=== PATIENT | male | born 1940 | race Caucasian/White ===

== ENCOUNTER 2024-06-14 19:31 | Inpatient (IN) | payer OTHER, SELFPAY ==
[2024-06-14 20:00] VITALS: BP 163/71; PULSE 65; RESP 18; TEMP 37.1; BMI 22.0
[2024-06-14 20:48] VITALS: BMI 23.3
[2024-06-14] MEDS: Acetaminophen 325 MG TABLET 650 MG PO (21:12)
[2024-06-14] MEDS: traZODone HCL 50 MG TABLET PO (21:12)
[2024-06-14] MEDS: Donepezil HCl 5 MG TABLET PO (21:12)
[2024-06-14] MEDS: Melatonin 3 MG TABLET PO (21:12)
[2024-06-14] MEDS: bisacodyL 5 MG TABLET.DR PO (21:12)
[2024-06-14] MEDS: Memantine HCl 10 MG TABLET PO (21:12)
[2024-06-14] MEDS: Carbidopa/Levodopa 25/100 TABLET 1 TAB PO (21:45)
[2024-06-14] MEDS: Azelastine HCl Nasal 137 MCG/Spray 30 ML 2 SPRAY NOSTRIL-B (21:45)
--- NOTE | 2024-06-14 23:45 | PC.NURSE ---
Admission Note Abel Shaffer, a 84-year-old man, was presented to [facility] ED from SNF for increased agitation with homicidal ideation. The patient has a medical and psychiatric history of major neuro cognitive disorder with behavior, hypertension, and NIDDM.? Abel arrived at our unit in a stretcher at 1950 on 06/14/24, on CV, with an admitting diagnosis of major neuro cognitive disorder with behavior. The patient is alert and oriented to self only. Abel is grossly confused, anxious, and at times restless needs constant redirection. Alert and oriented to self only, but he follows directions well. The skin check revealed no major skin issues except scab on right foot. He has an inverted penis with enlarged pubic region. No tenderness on palpation. Meds rec completed/approved/MAR active. Abel is med-compliant, and takes his meds whole. He ambulates independently with mild unsteadiness. Abel wears pull ups but he is incontinent of bowel and bladder. He is fully dependent on ADL care. He is high fall risk and his last fall was on 05/31/[address] [facility]. Labs are unremarkable. UA negative. Utox negative. Abel was unable to sign the treatment plan, safety tool, belonging sheet, and release paper. Prashanthabanraj searched and placed Abel in a 5 minutes safety check.
[2024-06-15] MEDS: traZODone HCL 50 MG TABLET PO ×2 (01:49→22:36)
[2024-06-15] MEDS: OLANZapine ODT 10 MG TAB.RAPDIS TRANSLINGU (05:21)
[2024-06-15 05:52] LABS: Glucose, Whole Blood 69 mg/dL (60-115)
[2024-06-15 06:00] VITALS: O2SAT 91
[2024-06-15 06:34] LABS: Glucose, Whole Blood 123 mg/dL (60-115)
[2024-06-15 08:00] VITALS: BP 126/60; PULSE 75; RESP 18; TEMP 36.5; O2SAT 95
[2024-06-15] MEDS: metFORMIN HCl 1,000 MG TABLET 1000 MG PO ×2 (09:01→16:55)
[2024-06-15] MEDS: Losartan Potassium 50 MG TABLET 100 MG PO (09:01)
[2024-06-15] MEDS: Aspirin 81 MG TAB.CHEW PO (09:01)
[2024-06-15] MEDS: amLODIPine Besylate 5 MG TABLET PO (09:01)
[2024-06-15] MEDS: Pravastatin Sodium 80 MG TABLET PO (09:01)
[2024-06-15] MEDS: Memantine HCl 10 MG TABLET PO ×2 (09:01→20:20)
[2024-06-15] MEDS: polyethylene glycoL 3350 17 GM POWD.PACK PO (09:02)
[2024-06-15] MEDS: Azelastine HCl Nasal 137 MCG/Spray 30 ML 2 SPRAY NOSTRIL-B ×2 (09:02→20:20)
[2024-06-15 09:31] LABS: Estimated Average Glucose 97 mg/dL
[2024-06-15 10:06] LABS: Folate 14.6 ng/mL (> or = 4.0); Vitamin B12 976 pg/mL (200-900)
--- NOTE | 2024-06-15 10:27 | HO.PSYADMNOT ---
HPI Date of Service: 06/15/24 Chief Complaint: Unspec Dementia Severity w/Behavioral Dist Etc Sources of Information: patient interviewed, chart reviewed and crisis/core team assessment reviewed Additional Sources of Information: Son, Abel, also HCP [phone] HPI Subjective Notes: Conditional Voluntary (signed by HCP) Narrative: Mr. Shaffer is an 84 year-old male with hx of AD who was brought via EMS from [facility] to [facility] due to increase agitation, attempting to hit staff and other residents and stating I'm going to kill you. In the ED, pt found to be oriented only to self. He was not able to tell why he was in the hospital and did not remember threatening someone. Pertinent labs completed in the ED included cbc with normocytic anemia, Hgb 10.2, Hct 30.5; CMP without electrolyte abnormalities, BUN 25, Cr 1.5, creatinine clearance 46. LFTs wnl. UA with trace of ketones, no glucose, trace of leukocytes but no bacteria. Utox was negative. On the unit, pt had difficulties sleeping through the night and presented with intermittent agitation due to confusion. He presented with somewhat of an irritable edge, not oriented to place, month, year nor situation. Noted expressive aphasia. He attempts to impulsively get up and walk out of his room without awareness of unsteady gait and risk for fall. Collateral information was gathered from his son, also named Abel, who reports pt lives with him but after he had a UTI and went to [facility] he was sent to STR at [facility] where he had difficulty adjusting as his dementia is very advanced and finally he was transferred to memory unit with plan to continue STR. Mr. Shaffer sees a neurologist, Dr. Ruddy Hammond who prescribes, aricept, namenda and sinemet (only bedtime dose). Pt's son reports that plan is for patient to return home as son is 19/10 caring for him. Past Psychiatric History: Inpt: none OP: none Neurologist: Ruddy Hammond Past medication trials: namenda, aricept, trazodone Medical Evaluation Reviewed: Yes [facility] Medical History (Updated 06/17/24 @ 08:28 by Kaylin Chandler NP) Unspecified dementia, moderate, with other behavioral disturbance HLD (hyperlipidemia) Non-insulin dependent type 2 diabetes mellitus HTN (hypertension) Family History: none Social History: Pt is . back in 2018. He completed [employer]. 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 He has two adult children, son Abel and daughter, Francia who lives in [place]. Son bAel is retired from the [employer] and lives with patient. Substance History: None Trauma History: None reported Diagnostics Vital Signs (24Hr): Vital Signs - 24 hr 06/14/24 20:00 06/15/24 06:00 06/15/24 08:00 Temperature 98.7 F 97.7 F Pulse Rate 65 75 Respiratory Rate 18 18 Blood Pressure 163/71 H 126/60 Pulse Oximetry 91 L 95 Oxygen Delivery Method Room Air Room Air BMI result Body Mass Index 23.3 Labs 06/16/24 10:53 06/16/24 09:07 Labs: Laboratory Results - last 48 hr 06/15/24 06/15/24 06/15/24 05:34 06:21 08:58 POC Glucose 69 123 H Estimat Average Glucose 97 Hemoglobin A1c % 5.0 Vitamin B12 976 H Folate 14.6 Meds/Allergies Meds Home Medications ?Medication ?Instructions ?Recorded ?Confirmed ?Type amlodipine 5 mg tablet 5 mg PO DAILY 06/14/24 06/14/24 History aspirin 81 mg tablet 81 mg PO DAILY 06/14/24 06/14/24 History azelastine 205.5 mcg (0.15 %) 2 spray intranasal BID 06/14/24 06/14/24 History nasal spray bisacodyl 5 mg tablet,delayed 5 mg PO BEDTIME 06/14/24 06/14/24 History release carbidopa ER 25 mg-levodopa 100 mg 1 tab PO BEDTIME 06/14/24 06/14/24 History tablet,extended release donepezil 5 mg tablet 5 mg PO BEDTIME 06/14/24 06/14/24 History losartan 100 mg tablet 100 mg PO DAILY 06/14/24 06/14/24 History magnesium hydroxide 400 mg/5 mL 2,400 mg PO DAILY PRN Constipation 06/14/24 06/14/24 History oral suspension melatonin 3 mg tablet 3 mg PO BEDTIME PRN Insomnia 06/14/24 06/14/24 History memantine 10 mg tablet 10 mg PO BID 06/14/24 06/14/24 History metformin 1,000 mg tablet 1,000 mg PO BID 06/14/24 06/14/24 History polyethylene glycol 3350 17 gram 17 g PO DAILY 06/14/24 06/14/24 History oral powder packet pravastatin 80 mg tablet 80 mg PO DAILY 06/14/24 06/14/24 History trazodone 50 mg tablet 50 mg PO BEDTIME 06/14/24 06/14/24 History Allergies Allergies Allergy/AdvReac Type Severity Reaction Status Date / Time No Known Allergies Allergy Verified 06/14/24 19:44 Mental Status Exam Mental Status Exam Narrative: Appearance: wearing casual clothing, fair hygiene, somewhat irritable Behavior: somewhat irritable Psychomotor: no agitation or retardation noted Speech: mumbles at times, regular rate/rhythm, spontaneous TP:mild expressive aphasia TC: wanting to get up and go Mood: good Affect: congruent, slightly irritable SI: none HI: none VH/AH: no overt signs Delusions: confabulation Insight/judgment: impaired x 2. Memory/cog: alert, not oriented to place, month year or situation. severe impairments in memory/cognition. 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 He is currently on metformin 1000mg BID. According to his creatinine clearance, dose shouldn't exceed 1000mg/day. Given A1c, and creatinine clearance will decrease dose to 500mg po BID. (4) HTN (hypertension): Status: Acute Code(s): I10 - Essential (primary) hypertension Assessment and Plan: Amlodipine 10mg po daily Losartan 100mg po daily (5) Extrapyramidal movement disorder: Status: Acute Code(s): G25.9 - Extrapyramidal and movement disorder, unspecified Assessment and Plan: Pt on levodopa/carbidopa at night but NOT for parkison's disease. will clarify with his neurologist, Dr. Ruddy Hammond. Plan Mr. Shaffer is an 84 year-old male with hx of AD who was brought via EMS from [facility] where he was receiving STR to [facility] ED due to combative behaviors. Medical work up grossly unremarkable and not contributory. Pt does NOT present with s/s of delirium. His presentation with impairments in orientation, memory, language deficits are reflection of his underlying dementia, AD type. His condition at this point is in advanced stages. Discussed with his son who is HCP risks, benefits and alternative treatment options. Pt does seem to be sensitive to sedative effects of some psychotropic medications. He slept several hours after dose of olanzapine 10mg. He received lowered dose of seroquel of 25mg which also seem to be sedating. We could try 2.5mg of olanzapine to target more impulsive, irritable mood. PLAN 1. Admit to S1, CV by HCP. HCP is invoked. 1 to 1 due to risk for fall. 2. try low dose olanzapine 2.5mg po BID- monitor over sedation. 3. aftercare planning. Patient educated on: diagnosis (son who is HCP) and medication risk/benefits Reason for continued inpatient stay Substantial Risk for: inability to function Statement Statement: I have reviewed the history and physical and performed a pertinent examination on my patient. No changes have occurred unless specified. If the History and Physical was not performed prior to admission, the Hospitalist's service will be consulted for completing the admission physical. Time Spent With Patient Time: Total time managing care of this patient today ____ minutes.
--- NOTE | 2024-06-15 18:23 | HO.PM.IMCN ---
History of Present Illness Data of Consult Service Date: 06/15/24 Primary Care Provider: Unknown Physician HPI Reason for consult: Admission H&P Pt is an 84-year-old male with a PMH significant for?HTN, HLD, parkinsonism, [id number]-[id number] type 2 diabetes, and unspecified dementia who is admitted to [facility] for increasing agitation and homicidal ideation. Pt apparently repeatedly stated ?I am going to kill you? when presenting to [facility] in [facility]. Medical consult for admission H&P. Pt has alert and oriented to self only. Unable to provide much in the way of PMH. Pt however states that he is feeling well and has no acute medical complaints. Denies fever, chills, nausea, vomiting, or abdominal pain. No SOB or difficulty breathing. Denies chest pain/pressure, palpitations. Pt seen ambulating on the unit, where he is walking slowly with a walker. Pt appears tremulous at least. Review of Systems Review of Systems: Pt has no acute medical complaints at this time. [facility] Medical History (Updated 06/15/24 @ 19:25 by FAUSTO Torre) Unspecified dementia, moderate, with other behavioral disturbance Parkinson's disease HLD (hyperlipidemia) Non-insulin dependent type 2 diabetes mellitus HTN (hypertension) Social History Household Members: Unknown / Unable to assess Housing: [facility] Do you presently have visiting nurse or other home services: No Patient Tobacco Use Status: Never used Tobacco e-Cigarette/Vaping Use: Never Used Use of substances other than those prescribed or required for medical reasons: Unable to respond Currently Displaying Signs/Symptoms of Drug Intoxication Withdrawal: No Advance Directives: No Advance Directives Information Provided: No Do you have thoughts of harming others: None Do you have a plan to hurt others: No Plan Recently lost weight without trying: No Nutrition Risks: No Nutritional Risk Meds Allergies Allergy/AdvReac Type Severity Reaction Status Date / Time No Known Allergies Allergy Verified 06/14/24 19:44 Active Medications: Current Medications Acetaminophen (Acetaminophen 325 Mg Tablet) 650 mg PO Q6H PRN PRN Reason: Headache/Pain, Scale 1-10 Last Admin: 06/14/24 21:12 Dose: 650 mg Al Hydroxide/Mg Hydroxide (Magnesium Hydrox/Alum Hydrox 30 Ml Oral.Susp) 30 ml PO Q6H PRN PRN Reason: Heartburn/Nausea Amlodipine Besylate (Amlodipine Besylate 5 Mg Tablet) 5 mg PO DAILY [facility]; Protocol Last Admin: 06/15/24 09:01 Dose: 5 mg Aspirin (Aspirin 81 Mg Tab.Chew) 81 mg PO DAILY [facility] Last Admin: 06/15/24 09:01 Dose: 81 mg Azelastine HCl (Azelastine Hcl Nasal 137 Mcg/[place] 30 Ml) 2 spray NOSTRIL-B BID [facility] Last Admin: 06/15/24 09:02 Dose: 2 spray Bisacodyl (Bisacodyl 5 Mg Tablet.Dr) 5 mg PO BEDTIME [facility] Last Admin: 06/14/24 21:12 Dose: 5 mg Carbidopa/Levodopa (Carbidopa/Levodopa 25/100 Tablet) 1 tab PO BEDTIME [facility] Last Admin: 06/14/24 21:45 Dose: 1 tab Donepezil HCl (Donepezil Hcl 5 Mg Tablet) 5 mg PO BEDTIME [facility] Last Admin: 06/14/24 21:12 Dose: 5 mg Losartan Potassium (Losartan Potassium 50 Mg Tablet) 100 mg PO DAILY [facility]; Protocol Last Admin: 06/15/24 09:01 Dose: 100 mg Magnesium Hydroxide (Milk Of Magnesia 30 Ml Oral.Susp) 30 ml PO DAILY PRN PRN Reason: Constipation Magnesium Hydroxide (Milk Of Magnesia 30 Ml Oral.Susp) 30 ml PO DAILY PRN PRN Reason: Constipation Melatonin (Melatonin 3 Mg Tablet) 3 mg PO BEDTIME PRN PRN Reason: Insomnia Last Admin: 06/14/24 21:12 Dose: 3 mg Memantine (Memantine Hcl 10 Mg Tablet) 10 mg PO BID [facility] Last Admin: 06/15/24 09:01 Dose: 10 mg Metformin HCl (Metformin Hcl 1,000 Mg Tablet) 1,000 mg PO BIDWM [facility] Last Admin: 06/15/24 16:55 Dose: 1,000 mg Nicotine Polacrilex (Nicotine Polacrilex 2 Mg Gum) 4 mg BUCCAL Q2H PRN PRN Reason: Nicotine Cravings Polyethylene Glycol (Polyethylene Glycol 3350 17 Gm Powd.Pack) 17 gm PO DAILY [facility] Last Admin: 06/15/24 09:02 Dose: 17 gm Pravastatin Sodium (Pravastatin Sodium 80 Mg Tablet) 80 mg PO DAILY [facility] Last Admin: 06/15/24 09:01 Dose: 80 mg Trazodone HCl (Trazodone Hcl 50 Mg Tablet) 50 mg PO BEDTIME PRN PRN Reason: Insomnia Home Medications ?Medication ?Instructions ?Recorded ?Confirmed ?Last Taken ?Type amlodipine 5 mg tablet 5 mg PO DAILY 06/14/24 06/14/24 Unknown History aspirin 81 mg tablet 81 mg PO DAILY 06/14/24 06/14/24 Unknown History azelastine 205.5 mcg (0.15 %) 2 spray intranasal BID 06/14/24 06/14/24 Unknown History nasal spray bisacodyl 5 mg tablet,delayed 5 mg PO BEDTIME 06/14/24 06/14/24 Unknown History release carbidopa ER 25 mg-levodopa 100 mg 1 tab PO BEDTIME 06/14/24 06/14/24 Unknown History tablet,extended release donepezil 5 mg tablet 5 mg PO BEDTIME 06/14/24 06/14/24 Unknown History losartan 100 mg tablet 100 mg PO DAILY 06/14/24 06/14/24 Unknown History magnesium hydroxide 400 mg/5 mL 2,400 mg PO DAILY PRN Constipation 06/14/24 06/14/24 Unknown History oral suspension melatonin 3 mg tablet 3 mg PO BEDTIME PRN Insomnia 06/14/24 06/14/24 Unknown History memantine 10 mg tablet 10 mg PO BID 06/14/24 06/14/24 Unknown History metformin 1,000 mg tablet 1,000 mg PO BID 06/14/24 06/14/24 Unknown History polyethylene glycol 3350 17 gram 17 g PO DAILY 06/14/24 06/14/24 Unknown History oral powder packet pravastatin 80 mg tablet 80 mg PO DAILY 06/14/24 06/14/24 Unknown History trazodone 50 mg tablet 50 mg PO BEDTIME 06/14/24 06/14/24 Unknown History Physical Exam Vital Signs and Narrative: Vital Signs: Last Vital Signs Temp 97.7 F 06/15/24 08:00 Pulse 75 06/15/24 08:00 Resp 18 06/15/24 08:00 BP 126/60 06/15/24 08:00 Pulse Ox 95 06/15/24 08:00 O2 Del Method Room Air 06/15/24 08:00 BMI result Body Mass Index 23.3 General: Alert and oriented to self only. In no acute distress Resp: CTA bilaterally CVS: S1, S2, RRR GI: +BS, NT, no distention Skin: Warm, dry Neuro: Cranial nerves II-XII grossly intact bilaterally. Motor grossly intact bilaterally. Global weakness. Resting tremors of upper extremities. Extremities: No edema Psych: Pleasantly confused Results Labs Labs: Laboratory Results - last 24 hr 06/15/24 06/15/24 06/15/24 05:34 06:21 08:58 POC Glucose 69 123 H Estimat Average Glucose 97 Hemoglobin A1c % 5.0 Vitamin B12 976 H Folate 14.6 Assessment and Plan (1) Medical clearance for psychiatric admission: Status: Acute Plan Pt is an 84-year-old male with a PMH significant for?HTN, HLD, parkinsonism, hsp-tpbgdld-[id number] type 2 diabetes, and unspecified dementia who is admitted to [facility] for increasing agitation and homicidal ideation. Pt apparently repeatedly stated ?I am going to kill you? when presenting to [facility] in [facility]. Medical consult for admission H&P. Mood disorder Plan as per psychiatry HTN Continue amlodipine, losartan Parkinsonism Continue carbidopa levodopa HLD Continue statin Mpz-xqggupl-xggunenns type 2 diabetes Continue metformin Encourage diabetic diet and diabetic snacking Unspecified dementia Continue donepezil and memantine Thank you for allowing us to participate in the care of this patient. Signing off at this time. Please re-consult if any acute complaints or issues arise.
[2024-06-15 20:00] VITALS: BP 150/70; PULSE 96; RESP 16; TEMP 36.2; O2SAT 92
[2024-06-15] MEDS: Carbidopa/Levodopa 25/100 TABLET 1 TAB PO (20:20)
[2024-06-15] MEDS: Donepezil HCl 5 MG TABLET PO (20:20)
[2024-06-15] MEDS: bisacodyL 5 MG TABLET.DR PO (20:20)
[2024-06-15] MEDS: Melatonin 3 MG TABLET PO (22:36)
[2024-06-16 08:00] VITALS: BP 99/57; PULSE 64; RESP 16; TEMP 36.6; O2SAT 92
[2024-06-16 09:15] LABS: Cholesterol 128 mg/dL (<200); HDL Cholesterol 47 mg/dL (>40); LDL Cholesterol Calculated 69 mg/dL (<100); Magnesium 1.7 mg/dL (1.6-2.6); Triglycerides 64 mg/dL (<150)
[2024-06-16 09:33] LABS: Free T4 (Free Thyroxine) 1.09 ng/dL (0.71-1.85); Thyroid Stimulating Hormone 1.53 uIU/mL (0.32-4.0)
[2024-06-16 09:36] LABS: Alanine Aminotransferase 9 U/L (0-40); Albumin Level 3.1 g/dL (3.5-5.0); Alkaline Phosphatase 81 U/L (39-117); Anion Gap 11 (12-20); Aspartate Amino Transferase 17 U/L (5-37); Bilirubin Total 0.4 mg/dL (0.0-1.0); Blood Urea Nitrogen 16 mg/dL (9-16); Calcium 9.1 mg/dL (8.4-10.2); Carbon Dioxide 26 mmol/L (22-29); Chloride 110 mmol/L (96-108); Creatinine Clr Calc Pharmacy 40.9; Estimated Glomerular Filt Rate 58; Glucose Random 75 mg/dL (60-115); Potassium 4.1 mmol/L (3.3-5.1); Sodium 143 mmol/L (135-145); Total Protein 6.3 g/dL (6.5-8.0)
[2024-06-16 09:53] LABS: TSH reflex Free T4 1.42 uIU/mL (0.32-4.0)
[2024-06-16] MEDS: Azelastine HCl Nasal 137 MCG/Spray 30 ML 2 SPRAY NOSTRIL-B ×2 (10:26→19:54)
[2024-06-16] MEDS: Aspirin 81 MG TAB.CHEW PO (10:27)
[2024-06-16] MEDS: metFORMIN HCl 1,000 MG TABLET 1000 MG PO ×2 (10:27→17:16)
[2024-06-16] MEDS: Pravastatin Sodium 80 MG TABLET PO (10:27)
[2024-06-16] MEDS: Memantine HCl 10 MG TABLET PO ×2 (10:27→19:55)
[2024-06-16] MEDS: polyethylene glycoL 3350 17 GM POWD.PACK PO (10:47)
[2024-06-16] MEDS: QUEtiapine Fumarate 25 MG TABLET PO (10:52)
[2024-06-16 10:57] LABS: MANUAL DIFF FLAG NO
[2024-06-16 11:03] LABS: Basophils Percent Auto 0.3 % (0-2); Eosinophils Absolute Auto 0.2 X10*3/uL (0.0-0.4); Eosinophils Percent Auto 3.1 % (0-4); Hematocrit 33.4 % (42.0-52.0); Hemoglobin 10.6 g/dl (14.0-18.0); Imm Gran Abs Auto 0.01 X10*3/uL (0.00-0.03); Imm Gran Pct Auto 0.2 % (0.0-0.4); Lymphocytes Absolute Auto 1.4 X10*3/uL (1.2-4.9); Lymphocytes Percent Auto 24.1 % (20-40); Mean Corpuscular HGB Conc 31.7 g/dl (31.0-36.0); Mean Corpuscular Hemoglobin 29.8 pg (27.0-33.0); Mean Corpuscular Volume 93.8 fL (80.0-98.0); Mean Platelet Volume 9.8 fL (9.4-12.4); Monocytes Absolute Auto 0.9 X10*3/uL (0.1-1.2); Monocytes Percent Auto 15.1 % (2-11); Neutrophils Absolute Auto 3.4 x10*3/uL (2.0-8.3); Neutrophils Percent Auto 57.2 % (45-73); Platelet Count 255 X10*3/uL (160-400); Red Blood Count 3.56 X10*6/uL (4.60-5.80); Red Cell Distribution Width 14.6 % (11.0-16.0); White Blood Count 5.9 X10*3/uL (4.8-10.8)
--- NOTE | 2024-06-16 16:29 | P.PNPSI_ITS ---
Subjective Subjective Date of Service: 06/16/24 Reason For Visit: Unspec Dementia Severity w/Behavioral Dist Etc Subjective Notes: Conditional Voluntary Interim History: Pt slept most of the night. He is not oriented to place, situation or month. He uses profanities, due to aphasia, easier to retrieve. slightly irritable, attempting to walk fast without awareness of risk of fall. continue on one to one for this reason. He was given seroquel 25mg po in the AM but later slept for 3 hrs. may try olanzapine 2.5mg po BID. Review of Systems Review of Systems Pt has no acute medical complaints at this time. Yes Unobtainable due to mental condition Mental Status Exam Mental Status Exam Narrative: Appearance: wearing casual clothing, fair hygiene, somewhat irritable Behavior: somewhat irritable Psychomotor: no agitation or retardation noted Speech: mumbles at times, regular rate/rhythm, spontaneous TP:mild expressive aphasia TC: wanting to get up and go Mood: good Affect: congruent, slightly irritable SI: none HI: none VH/AH: no overt signs Delusions: confabulation Insight/judgment: impaired x 2. Memory/cog: alert, not oriented to place, month year or situation. severe impairments in memory/cognition. Diagnostics Vital Signs (24Hr): Vital Signs - 24 hr 06/15/24 20:00 06/16/24 08:00 Temperature 97.2 F 97.8 F Pulse Rate 96 64 Respiratory Rate 16 16 Blood Pressure 150/70 H 99/57 L Pulse Oximetry 92 92 Oxygen Delivery Method Room Air Room Air BMI result Body Mass Index 23.3 Labs 06/16/24 10:53 06/16/24 09:07 Labs: Laboratory Results - last 48 hr 06/15/24 06/15/24 06/15/24 05:34 06:21 08:58 WBC RBC Hgb Hct MCV MCH MCHC RDW Plt Count MPV Immature Gran % (Auto) Neut % (Auto) Lymph % (Auto) [place] % (Auto) Eos % (Auto) Baso % (Auto) Lymph # (Auto) [place] # (Auto) Eos # (Auto) Baso # (Auto) Abs Immat Gran (auto) Absolute Neuts (auto) Absolute Nucleated RBC Nucleated RBC % (auto) Sodium Potassium Chloride Carbon Dioxide Anion Gap BUN Creatinine Estim Creat Clear Calc Estimated GFR POC Glucose 69 123 H Random Glucose Estimat Average Glucose 97 Hemoglobin A1c % 5.0 Lactic Acid Calcium Magnesium Total Bilirubin AST ALT Alkaline Phosphatase Total Protein Albumin Triglycerides Cholesterol LDL Cholesterol, Calc HDL Cholesterol Vitamin B12 976 H Folate 14.6 TSH Free T4 06/16/24 06/16/24 06/16/24 08:07 09:07 10:53 WBC 5.9 RBC 3.56 L Hgb 10.6 L Hct 33.4 L MCV 93.8 MCH 29.8 MCHC 31.7 RDW 14.6 Plt Count 255 MPV 9.8 Immature Gran % (Auto) 0.2 Neut % (Auto) 57.2 Lymph % (Auto) 24.1 [place] % (Auto) 15.1 H Eos % (Auto) 3.1 Baso % (Auto) 0.3 Lymph # (Auto) 1.4 [place] # (Auto) 0.9 Eos # (Auto) 0.2 Baso # (Auto) 0.0 Abs Immat Gran (auto) 0.01 Absolute Neuts (auto) 3.4 Absolute Nucleated RBC 0.000 Nucleated RBC % (auto) 0.0 Sodium 143 Potassium 4.1 Chloride 110 H Carbon Dioxide 26 Anion Gap 11 L BUN 16 Creatinine 1.19 Estim Creat Clear Calc 40.9 Estimated GFR 58 POC Glucose Random Glucose 75 Estimat Average Glucose Hemoglobin A1c % Lactic Acid 1.0 Calcium 9.1 Magnesium 1.7 Total Bilirubin 0.4 AST 17 ALT 9 Alkaline Phosphatase 81 Total Protein 6.3 L Albumin 3.1 L Triglycerides 64 Cholesterol 128 LDL Cholesterol, Calc 69 HDL Cholesterol 47 Vitamin B12 Folate TSH 1.53 1.42 Free T4 1.09 Medications Medications Current Medications Acetaminophen (Acetaminophen 325 Mg Tablet) 650 mg PO Q6H PRN PRN Reason: Headache/Pain, Scale 1-10 Last Admin: 06/14/24 21:12 Dose: 650 mg Al Hydroxide/Mg Hydroxide (Magnesium Hydrox/Alum Hydrox 30 Ml Oral.Susp) 30 ml PO Q6H PRN PRN Reason: Heartburn/Nausea Amlodipine Besylate (Amlodipine Besylate 5 Mg Tablet) 5 mg PO DAILY [facility]; Protocol Last Admin: 06/16/24 10:46 Dose: Not Given Aspirin (Aspirin 81 Mg Tab.Chew) 81 mg PO DAILY [facility] Last Admin: 06/16/24 10:27 Dose: 81 mg Azelastine HCl (Azelastine Hcl Nasal 137 Mcg/[place] 30 Ml) 2 spray NOSTRIL-B BID [facility] Last Admin: 06/16/24 10:26 Dose: 2 spray Bisacodyl (Bisacodyl 5 Mg Tablet.Dr) 5 mg PO BEDTIME [facility] Last Admin: 06/15/24 20:20 Dose: 5 mg Carbidopa/Levodopa (Carbidopa/Levodopa 25/100 Tablet) 1 tab PO BEDTIME [facility] Last Admin: 06/15/24 20:20 Dose: 1 tab Donepezil HCl (Donepezil Hcl 5 Mg Tablet) 5 mg PO BEDTIME [facility] Last Admin: 06/15/24 20:20 Dose: 5 mg Losartan Potassium (Losartan Potassium 50 Mg Tablet) 100 mg PO DAILY [facility]; Protocol Last Admin: 06/16/24 10:47 Dose: Not Given Magnesium Hydroxide (Milk Of Magnesia 30 Ml Oral.Susp) 30 ml PO DAILY PRN PRN Reason: Constipation Magnesium Hydroxide (Milk Of Magnesia 30 Ml Oral.Susp) 30 ml PO DAILY PRN PRN Reason: Constipation Melatonin (Melatonin 3 Mg Tablet) 3 mg PO BEDTIME PRN PRN Reason: Insomnia Last Admin: 06/15/24 22:36 Dose: 3 mg Memantine (Memantine Hcl 10 Mg Tablet) 10 mg PO BID [facility] Last Admin: 06/16/24 10:27 Dose: 10 mg Metformin HCl (Metformin Hcl 1,000 Mg Tablet) 1,000 mg PO BIDWM [facility] Last Admin: 06/16/24 10:27 Dose: 1,000 mg Nicotine Polacrilex (Nicotine Polacrilex 2 Mg Gum) 4 mg BUCCAL Q2H PRN PRN Reason: Nicotine Cravings Polyethylene Glycol (Polyethylene Glycol 3350 17 Gm Powd.Pack) 17 gm PO DAILY [facility] Last Admin: 06/16/24 10:47 Dose: 17 gm Pravastatin Sodium (Pravastatin Sodium 80 Mg Tablet) 80 mg PO DAILY [facility] Last Admin: 06/16/24 10:27 Dose: 80 mg Trazodone HCl (Trazodone Hcl 50 Mg Tablet) 50 mg PO BEDTIME PRN PRN Reason: Insomnia Last Admin: 06/15/24 22:36 Dose: 50 mg Allergies Allergies Allergy/AdvReac Type Severity Reaction Status Date / Time No Known Allergies Allergy Verified 06/14/24 19:44 Assessment & Plan Assessment & Plan (1) 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 He is currently on metformin 1000mg BID. According to his creatinine clearance, dose shouldn't exceed 1000mg/day. Given A1c, and creatinine clearance will decrease dose to 500mg po BID. (4) HTN (hypertension): Status: Acute Code(s): I10 - Essential (primary) hypertension Assessment and Plan: Amlodipine 10mg po daily Losartan 100mg po daily (5) Extrapyramidal movement disorder: Status: Acute Code(s): G25.9 - Extrapyramidal and movement disorder, unspecified Assessment and Plan: Pt on levodopa/carbidopa at night but NOT for parkison's disease. will clarify with his neurologist, Dr. Ruddy Hammond. Plan Mr. Shaffer is an 84 year-old male with hx of AD who was brought via EMS from [facility] where he was receiving STR to [facility] ED due to combative behaviors. Medical work up grossly unremarkable and not contributory. Pt does NOT present with s/s of delirium. His presentation with impairments in orientation, memory, language deficits are reflection of his underlying dementia, AD type. His condition at this point is in advanced stages. Discussed with his son who is HCP risks, benefits and alternative treatment options. Pt does seem to be sensitive to sedative effects of some psychotropic medications. He slept several hours after dose of olanzapine 10mg. He received lowered dose of seroquel of 25mg which also seem to be sedating. We could try 2.5mg of olanzapine to target more impulsive, irritable mood. PLAN 1. Admit to S1, CV by HCP. HCP is invoked. 1 to 1 due to risk for fall. 2. try low dose olanzapine 2.5mg po BID- monitor over sedation. 3. aftercare planning. Reason for continued inpatient stay Substantial Risk for: inability to function Time Spent With Patient Time: Total time managing care of this patient today ____ minutes.
[2024-06-16] MEDS: Melatonin 3 MG TABLET PO (19:54)
[2024-06-16] MEDS: traZODone HCL 50 MG TABLET PO (19:55)
[2024-06-16] MEDS: Donepezil HCl 5 MG TABLET PO (19:55)
[2024-06-16] MEDS: bisacodyL 5 MG TABLET.DR PO (19:55)
[2024-06-16] MEDS: Carbidopa/Levodopa 25/100 TABLET 1 TAB PO (19:56)
[2024-06-16 20:00] VITALS: BP 127/77; PULSE 75; RESP 18; TEMP 35.9; O2SAT 96
[2024-06-17 08:00] VITALS: BP 139/66; PULSE 74; RESP 18; TEMP 36.3
--- NOTE | 2024-06-17 08:55 | P.PNPSI_ITS ---
Subjective Subjective Date of Service: 06/17/24 Reason For Visit: Unspec Dementia Severity w/Behavioral Dist Etc Interim History: Per staff patient slept most of the night. He is confused. He is slightly irritable. Continue on one to one for this reason.Tangential. Non-sensical. Tolerating Zyprexa. Review of Systems Review of Systems Pt has no acute medical complaints at this time. Yes Unobtainable due to mental condition Mental Status Exam Mental Status Exam Narrative: Appearance: wearing casual clothing, fair hygiene, somewhat irritable Behavior: somewhat irritable Psychomotor: no agitation or retardation noted Speech: mumbles at times, regular rate/rhythm, spontaneous TP:mild expressive aphasia TC: wanting to get up and go Mood: good Affect: congruent, slightly irritable SI: none HI: none VH/AH: no overt signs Delusions: confabulation Insight/judgment: impaired x 2. Memory/cog: alert, not oriented to place, month year or situation. severe impairments in memory/cognition. Diagnostics Vital Signs (24Hr): Vital Signs - 24 hr 06/16/24 20:00 Temperature 96.7 F L Pulse Rate 75 Respiratory Rate 18 Blood Pressure 127/77 Pulse Oximetry 96 Oxygen Delivery Method Room Air BMI result Body Mass Index 23.3 Labs 06/16/24 10:53 06/16/24 09:07 Labs: Laboratory Results - last 48 hr 06/15/24 06/16/24 06/16/24 08:58 08:07 09:07 WBC RBC Hgb Hct MCV MCH MCHC RDW Plt Count MPV Immature Gran % (Auto) Neut % (Auto) Lymph % (Auto) [place] % (Auto) Eos % (Auto) Baso % (Auto) Lymph # (Auto) [place] # (Auto) Eos # (Auto) Baso # (Auto) Abs Immat Gran (auto) Absolute Neuts (auto) Absolute Nucleated RBC Nucleated RBC % (auto) Sodium 143 Potassium 4.1 Chloride 110 H Carbon Dioxide 26 Anion Gap 11 L BUN 16 Creatinine 1.19 Estim Creat Clear Calc 40.9 Estimated GFR 58 Random Glucose 75 Estimat Average Glucose 97 Hemoglobin A1c % 5.0 Lactic Acid 1.0 Calcium 9.1 Magnesium 1.7 Total Bilirubin 0.4 AST 17 ALT 9 Alkaline Phosphatase 81 Total Protein 6.3 L Albumin 3.1 L Triglycerides 64 Cholesterol 128 LDL Cholesterol, Calc 69 HDL Cholesterol 47 Vitamin B12 976 H Folate 14.6 TSH 1.53 1.42 Free T4 1.09 06/16/24 10:53 WBC 5.9 RBC 3.56 L Hgb 10.6 L Hct 33.4 L MCV 93.8 MCH 29.8 MCHC 31.7 RDW 14.6 Plt Count 255 MPV 9.8 Immature Gran % (Auto) 0.2 Neut % (Auto) 57.2 Lymph % (Auto) 24.1 [place] % (Auto) 15.1 H Eos % (Auto) 3.1 Baso % (Auto) 0.3 Lymph # (Auto) 1.4 [place] # (Auto) 0.9 Eos # (Auto) 0.2 Baso # (Auto) 0.0 Abs Immat Gran (auto) 0.01 Absolute Neuts (auto) 3.4 Absolute Nucleated RBC 0.000 Nucleated RBC % (auto) 0.0 Sodium Potassium Chloride Carbon Dioxide Anion Gap BUN Creatinine Estim Creat Clear Calc Estimated GFR Random Glucose Estimat Average Glucose Hemoglobin A1c % Lactic Acid Calcium Magnesium Total Bilirubin AST ALT Alkaline Phosphatase Total Protein Albumin Triglycerides Cholesterol LDL Cholesterol, Calc HDL Cholesterol Vitamin B12 Folate TSH Free T4 Medications Medications Current Medications Acetaminophen (Acetaminophen 325 Mg Tablet) 650 mg PO Q6H PRN PRN Reason: Headache/Pain, Scale 1-10 Last Admin: 06/14/24 21:12 Dose: 650 mg Al Hydroxide/Mg Hydroxide (Magnesium Hydrox/Alum Hydrox 30 Ml Oral.Susp) 30 ml PO Q6H PRN PRN Reason: Heartburn/Nausea Amlodipine Besylate (Amlodipine Besylate 5 Mg Tablet) 5 mg PO DAILY [facility]; Protocol Last Admin: 06/16/24 10:46 Dose: Not Given Aspirin (Aspirin 81 Mg Tab.Chew) 81 mg PO DAILY [facility] Last Admin: 06/16/24 10:27 Dose: 81 mg Azelastine HCl (Azelastine Hcl Nasal 137 Mcg/[place] 30 Ml) 2 spray NOSTRIL-B BID [facility] Last Admin: 06/16/24 19:54 Dose: 2 spray Bisacodyl (Bisacodyl 5 Mg Tablet.Dr) 5 mg PO BEDTIME [facility] Last Admin: 06/16/24 19:55 Dose: 5 mg Carbidopa/Levodopa (Carbidopa/Levodopa 25/100 Tablet) 1 tab PO BEDTIME [facility] Last Admin: 06/16/24 19:56 Dose: 1 tab Donepezil HCl (Donepezil Hcl 5 Mg Tablet) 5 mg PO BEDTIME [facility] Last Admin: 06/16/24 19:55 Dose: 5 mg Losartan Potassium (Losartan Potassium 50 Mg Tablet) 100 mg PO DAILY [facility]; Protocol Last Admin: 06/16/24 10:47 Dose: Not Given Magnesium Hydroxide (Milk Of Magnesia 30 Ml Oral.Susp) 30 ml PO DAILY PRN PRN Reason: Constipation Magnesium Hydroxide (Milk Of Magnesia 30 Ml Oral.Susp) 30 ml PO DAILY PRN PRN Reason: Constipation Melatonin (Melatonin 3 Mg Tablet) 3 mg PO BEDTIME PRN PRN Reason: Insomnia Last Admin: 06/16/24 19:54 Dose: 3 mg Memantine (Memantine Hcl 10 Mg Tablet) 10 mg PO BID [facility] Last Admin: 06/16/24 19:55 Dose: 10 mg Metformin HCl (Metformin Hcl 500 Mg Tablet) 500 mg PO BIDWM [facility] Nicotine Polacrilex (Nicotine Polacrilex 2 Mg Gum) 4 mg BUCCAL Q2H PRN PRN Reason: Nicotine Cravings Polyethylene Glycol (Polyethylene Glycol 3350 17 Gm Powd.Pack) 17 gm PO DAILY [facility] Last Admin: 06/16/24 10:47 Dose: 17 gm Pravastatin Sodium (Pravastatin Sodium 80 Mg Tablet) 80 mg PO DAILY [facility] Last Admin: 06/16/24 10:27 Dose: 80 mg Trazodone HCl (Trazodone Hcl 50 Mg Tablet) 50 mg PO BEDTIME PRN PRN Reason: Insomnia Last Admin: 06/16/24 19:55 Dose: 50 mg Allergies Allergies Allergy/AdvReac Type Severity Reaction Status Date / Time No Known Allergies Allergy Verified 06/14/24 19:44 Assessment & Plan Assessment & Plan (1) 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 He is currently on metformin 1000mg BID. According to his creatinine clearance, dose shouldn't exceed 1000mg/day. Given A1c, and creatinine clearance will decrease dose to 500mg po BID. (4) HTN (hypertension): Status: Acute Code(s): I10 - Essential (primary) hypertension Assessment and Plan: Amlodipine 10mg po daily Losartan 100mg po daily (5) Extrapyramidal movement disorder: Status: Acute Code(s): G25.9 - Extrapyramidal and movement disorder, unspecified Assessment and Plan: Pt on levodopa/carbidopa at night but NOT for parkison's disease. will clarify with his neurologist, Dr. Ruddy Hammond. Plan Mr. Shaffer is an 84 year-old male with hx of AD who was brought via EMS from [facility] where he was receiving STR to [facility] ED due to combative behaviors. Medical work up grossly unremarkable and not contributory. Pt does NOT present with s/s of delirium. His presentation with impairments in orientation, memory, language deficits are reflection of his underlying dementia, AD type. His condition at this point is in advanced stages. Discussed with his son who is HCP risks, benefits and alternative treatment options. Pt does seem to be sensitive to sedative effects of some psychotropic medications. He slept several hours after dose of olanzapine 10mg. He received lowered dose of seroquel of 25mg which also seem to be sedating. We could try 2.5mg of olanzapine to target more impulsive, irritable mood. PLAN 1. Admit to S1, CV by HCP. HCP is invoked. 1 to 1 due to risk for fall. 2. try low dose olanzapine 2.5mg po BID- monitor over sedation. 3. aftercare planning. 06/17: Continue current management and treatment plan. Reason for continued inpatient stay Substantial Risk for: inability to function and rapid decompensation Time Spent With Patient Time: Total time managing care of this patient today ____ minutes.
[2024-06-17 09:16] VITALS: BP 139/66
[2024-06-17] MEDS: amLODIPine Besylate 5 MG TABLET PO (09:16)
[2024-06-17] MEDS: Pravastatin Sodium 80 MG TABLET PO (09:16)
[2024-06-17] MEDS: Memantine HCl 10 MG TABLET PO ×2 (09:16→20:16)
[2024-06-17] MEDS: Losartan Potassium 50 MG TABLET 100 MG PO (09:16)
[2024-06-17] MEDS: Aspirin 81 MG TAB.CHEW PO (09:16)
[2024-06-17] MEDS: Azelastine HCl Nasal 137 MCG/Spray 30 ML 2 SPRAY NOSTRIL-B ×2 (09:25→20:29)
[2024-06-17] MEDS: metFORMIN HCl 500 MG TABLET PO (16:24)
[2024-06-17 20:00] VITALS: BP 100/66; PULSE 84; RESP 20; TEMP 36.6; O2SAT 100
[2024-06-17] MEDS: OLANZapine 2.5 MG TABLET PO (20:15)
[2024-06-17] MEDS: Donepezil HCl 5 MG TABLET PO (20:15)
[2024-06-17] MEDS: traZODone HCL 50 MG TABLET PO (20:15)
[2024-06-17] MEDS: Melatonin 3 MG TABLET PO (20:15)
[2024-06-17] MEDS: Carbidopa/Levodopa 25/100 TABLET 1 TAB PO (20:16)
[2024-06-18 08:00] VITALS: BP 117/60; PULSE 97; RESP 18; TEMP 36.4
[2024-06-18 08:59] VITALS: BP 117/60
[2024-06-18] MEDS: Losartan Potassium 50 MG TABLET 100 MG PO (08:59)
[2024-06-18 09:00] VITALS: BP 117/60
[2024-06-18] MEDS: Aspirin 81 MG TAB.CHEW PO (09:00)
[2024-06-18] MEDS: Memantine HCl 10 MG TABLET PO ×2 (09:00→20:44)
[2024-06-18] MEDS: amLODIPine Besylate 5 MG TABLET PO (09:00)
[2024-06-18] MEDS: OLANZapine 2.5 MG TABLET PO ×2 (09:00→20:44)
[2024-06-18] MEDS: polyethylene glycoL 3350 17 GM POWD.PACK PO (09:01)
[2024-06-18] MEDS: Azelastine HCl Nasal 137 MCG/Spray 30 ML 2 SPRAY NOSTRIL-B (09:01)
[2024-06-18] MEDS: Pravastatin Sodium 80 MG TABLET PO (09:02)
[2024-06-18] MEDS: metFORMIN HCl 500 MG TABLET PO ×2 (09:03→17:30)
--- NOTE | 2024-06-18 12:04 | HO.PSYCHPN ---
Subjective Subjective Date of Service: 06/18/24 Reason For Visit: Unspec Dementia Severity w/Behavioral Dist Etc Interim History: Per staff patient slept most of the night. He is confused. He is tangential and non-sensical. Continue on one to one. Tolerating Zyprexa. Denies pain. Denies SI/HI/AVH Review of Systems Review of Systems Pt has no acute medical complaints at this time. Yes Unobtainable due to mental condition Mental Status Exam Mental Status Exam Narrative: Appearance: wearing casual clothing, fair hygiene, somewhat irritable Behavior: somewhat irritable Psychomotor: no agitation or retardation noted Speech: mumbles at times, regular rate/rhythm, spontaneous TP:mild expressive aphasia TC: wanting to get up and go Mood: good Affect: congruent, slightly irritable SI: none HI: none VH/AH: no overt signs Delusions: confabulation Insight/judgment: impaired x 2. Memory/cog: alert, not oriented to place, month year or situation. severe impairments in memory/cognition. Diagnostics Vital Signs (24Hr): Vital Signs - 24 hr 06/17/24 20:00 06/18/24 08:00 06/18/24 08:59 Temperature 98 F 97.5 F Pulse Rate 84 97 Respiratory Rate 20 18 Blood Pressure 100/66 117/60 117/60 Pulse Oximetry 100 Oxygen Delivery Method Room Air 06/18/24 09:00 Temperature Pulse Rate Respiratory Rate Blood Pressure 117/60 Pulse Oximetry Oxygen Delivery Method BMI result Body Mass Index 23.3 Labs 06/16/24 10:53 06/16/24 09:07 Medications Medications Current Medications Acetaminophen (Acetaminophen 325 Mg Tablet) 650 mg PO Q6H PRN PRN Reason: Headache/Pain, Scale 1-10 Last Admin: 06/14/24 21:12 Dose: 650 mg Al Hydroxide/Mg Hydroxide (Magnesium Hydrox/Alum Hydrox 30 Ml Oral.Susp) 30 ml PO Q6H PRN PRN Reason: Heartburn/Nausea Amlodipine Besylate (Amlodipine Besylate 5 Mg Tablet) 5 mg PO DAILY [facility]; Protocol Last Admin: 06/18/24 09:00 Dose: 5 mg Aspirin (Aspirin 81 Mg Tab.Chew) 81 mg PO DAILY [facility] Last Admin: 06/18/24 09:00 Dose: 81 mg Azelastine HCl (Azelastine Hcl Nasal 137 Mcg/[place] 30 Ml) 2 spray NOSTRIL-B BID [facility] Last Admin: 06/18/24 09:01 Dose: 2 spray Bisacodyl (Bisacodyl 5 Mg Tablet.Dr) 5 mg PO BEDTIME [facility] Last Admin: 06/17/24 20:37 Dose: Not Given Carbidopa/Levodopa (Carbidopa/Levodopa 25/100 Tablet) 1 tab PO BEDTIME [facility] Last Admin: 06/17/24 20:16 Dose: 1 tab Donepezil HCl (Donepezil Hcl 5 Mg Tablet) 5 mg PO BEDTIME [facility] Last Admin: 06/17/24 20:15 Dose: 5 mg Losartan Potassium (Losartan Potassium 50 Mg Tablet) 100 mg PO DAILY [facility]; Protocol Last Admin: 06/18/24 08:59 Dose: 100 mg Magnesium Hydroxide (Milk Of Magnesia 30 Ml Oral.Susp) 30 ml PO DAILY PRN PRN Reason: Constipation Magnesium Hydroxide (Milk Of Magnesia 30 Ml Oral.Susp) 30 ml PO DAILY PRN PRN Reason: Constipation Melatonin (Melatonin 3 Mg Tablet) 3 mg PO BEDTIME PRN PRN Reason: Insomnia Last Admin: 06/17/24 20:15 Dose: 3 mg Memantine (Memantine Hcl 10 Mg Tablet) 10 mg PO BID [facility] Last Admin: 06/18/24 09:00 Dose: 10 mg Metformin HCl (Metformin Hcl 500 Mg Tablet) 500 mg PO BIDWM [facility] Last Admin: 06/18/24 09:03 Dose: 500 mg Nicotine Polacrilex (Nicotine Polacrilex 2 Mg Gum) 4 mg BUCCAL Q2H PRN PRN Reason: Nicotine Cravings Olanzapine (Olanzapine 2.5 Mg Tablet) 2.5 mg PO BID [facility] Last Admin: 06/18/24 09:00 Dose: 2.5 mg Polyethylene Glycol (Polyethylene Glycol 3350 17 Gm Powd.Pack) 17 gm PO DAILY [facility] Last Admin: 06/18/24 09:01 Dose: 17 gm Pravastatin Sodium (Pravastatin Sodium 80 Mg Tablet) 80 mg PO DAILY [facility] Last Admin: 06/18/24 09:02 Dose: 80 mg Trazodone HCl (Trazodone Hcl 50 Mg Tablet) 50 mg PO BEDTIME PRN PRN Reason: Insomnia Last Admin: 06/17/24 20:15 Dose: 50 mg Allergies Allergies Allergy/AdvReac Type Severity Reaction Status Date / Time No Known Allergies Allergy Verified 06/14/24 19:44 Assessment & Plan Assessment & Plan (1) 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 He is currently on metformin 1000mg BID. According to his creatinine clearance, dose shouldn't exceed 1000mg/day. Given A1c, and creatinine clearance will decrease dose to 500mg po BID. (4) HTN (hypertension): Status: Acute Code(s): I10 - Essential (primary) hypertension Assessment and Plan: Amlodipine 10mg po daily Losartan 100mg po daily (5) Extrapyramidal movement disorder: Status: Acute Code(s): G25.9 - Extrapyramidal and movement disorder, unspecified Assessment and Plan: Pt on levodopa/carbidopa at night but NOT for parkison's disease. will clarify with his neurologist, Dr. Ruddy Hammond. Plan Mr. Shaffer is an 84 year-old male with hx of AD who was brought via EMS from [facility] where he was receiving STR to [facility] ED due to combative behaviors. Medical work up grossly unremarkable and not contributory. Pt does NOT present with s/s of delirium. His presentation with impairments in orientation, memory, language deficits are reflection of his underlying dementia, AD type. His condition at this point is in advanced stages. Discussed with his son who is HCP risks, benefits and alternative treatment options. Pt does seem to be sensitive to sedative effects of some psychotropic medications. He slept several hours after dose of olanzapine 10mg. He received lowered dose of seroquel of 25mg which also seem to be sedating. We could try 2.5mg of olanzapine to target more impulsive, irritable mood. PLAN 1. Admit to S1, CV by HCP. HCP is invoked. 1 to 1 due to risk for fall. 2. try low dose olanzapine 2.5mg po BID- monitor over sedation. 3. aftercare planning. 06/17: Continue current management and treatment plan. 06/18: continue current management and treatment plan. Reason for continued inpatient stay Substantial Risk for: inability to function, rapid decompensation and med/psych decompensation Time Spent With Patient Time: Total time managing care of this patient today ____ minutes.
[2024-06-18 20:00] VITALS: BP 147/63; PULSE 83; RESP 16; TEMP 36.8; O2SAT 99
[2024-06-18] MEDS: Donepezil HCl 5 MG TABLET PO (20:44)
[2024-06-18] MEDS: traZODone HCL 50 MG TABLET PO (20:44)
[2024-06-18] MEDS: Carbidopa/Levodopa 25/100 TABLET 1 TAB PO (20:44)
[2024-06-18] MEDS: bisacodyL 5 MG TABLET.DR PO (20:44)
[2024-06-19 06:57] LABS: Glucose, Whole Blood 74 mg/dL (60-115)
[2024-06-19 09:28] VITALS: BP 106/53; PULSE 62; RESP 18; O2SAT 94
--- NOTE | 2024-06-19 09:38 | HO.PSYCHPN ---
Subjective Subjective Date of Service: 06/19/24 Reason For Visit: Unspec Dementia Severity w/Behavioral Dist Etc Subjective Notes: Conditional Voluntary Healthcare Proxy: Yes Interim History: Pt slept all night. He is taking medications as prescribed. He woke up later today at around 11am He had intermittent episodes of agitation, yelling at staff but able to be redirected. BP on lower side, which could be conbination of olanzapine and BP meds- may have to adjust BP medications. Review of Systems Review of Systems Pt has no acute medical complaints at this time. Yes Unobtainable due to mental condition Mental Status Exam Mental Status Exam Narrative: Appearance: wearing casual clothing, fair hygiene, somewhat irritable Behavior: somewhat irritable Psychomotor: no agitation or retardation noted Speech: mumbles at times, regular rate/rhythm, spontaneous TP:mild expressive aphasia TC: wanting to get up and go Mood: good Affect: congruent, slightly irritable SI: none HI: none VH/AH: no overt signs Delusions: confabulation Insight/judgment: impaired x 2. Memory/cog: alert, not oriented to place, month year or situation. severe impairments in memory/cognition. Diagnostics Vital Signs (24Hr): Vital Signs - 24 hr 06/18/24 20:00 06/19/24 09:28 Temperature 98.3 F Pulse Rate 83 62 Respiratory Rate 16 18 Blood Pressure 147/63 H 106/53 L Pulse Oximetry 99 94 Oxygen Delivery Method Room Air Room Air BMI result Body Mass Index 23.3 Labs 06/16/24 10:53 06/16/24 09:07 Labs: Laboratory Results - last 48 hr 06/19/24 06:38 POC Glucose 74 Medications Medications Current Medications Acetaminophen (Acetaminophen 325 Mg Tablet) 650 mg PO Q6H PRN PRN Reason: Headache/Pain, Scale 1-10 Last Admin: 06/14/24 21:12 Dose: 650 mg Al Hydroxide/Mg Hydroxide (Magnesium Hydrox/Alum Hydrox 30 Ml Oral.Susp) 30 ml PO Q6H PRN PRN Reason: Heartburn/Nausea Amlodipine Besylate (Amlodipine Besylate 5 Mg Tablet) 5 mg PO DAILY DANNY; Protocol Last Admin: 06/18/24 09:00 Dose: 5 mg Aspirin (Aspirin 81 Mg Tab.Chew) 81 mg PO DAILY [facility] Last Admin: 06/18/24 09:00 Dose: 81 mg Azelastine HCl (Azelastine Hcl Nasal 137 Mcg/[place] 30 Ml) 2 spray NOSTRIL-B BID [facility] Last Admin: 06/18/24 20:49 Dose: Not Given Bisacodyl (Bisacodyl 5 Mg Tablet.Dr) 5 mg PO BEDTIME [facility] Last Admin: 06/18/24 20:44 Dose: 5 mg Carbidopa/Levodopa (Carbidopa/Levodopa 25/100 Tablet) 1 tab PO BEDTIME [facility] Last Admin: 06/18/24 20:44 Dose: 1 tab Donepezil HCl (Donepezil Hcl 5 Mg Tablet) 5 mg PO BEDTIME [facility] Last Admin: 06/18/24 20:44 Dose: 5 mg Losartan Potassium (Losartan Potassium 50 Mg Tablet) 100 mg PO DAILY [facility]; Protocol Last Admin: 06/18/24 08:59 Dose: 100 mg Magnesium Hydroxide (Milk Of Magnesia 30 Ml Oral.Susp) 30 ml PO DAILY PRN PRN Reason: Constipation Magnesium Hydroxide (Milk Of Magnesia 30 Ml Oral.Susp) 30 ml PO DAILY PRN PRN Reason: Constipation Melatonin (Melatonin 3 Mg Tablet) 3 mg PO BEDTIME PRN PRN Reason: Insomnia Last Admin: 06/17/24 20:15 Dose: 3 mg Memantine (Memantine Hcl 10 Mg Tablet) 10 mg PO BID [facility] Last Admin: 06/18/24 20:44 Dose: 10 mg Metformin HCl (Metformin Hcl 500 Mg Tablet) 500 mg PO BIDWM [facility] Last Admin: 06/18/24 17:30 Dose: 500 mg Nicotine Polacrilex (Nicotine Polacrilex 2 Mg Gum) 4 mg BUCCAL Q2H PRN PRN Reason: Nicotine Cravings Olanzapine (Olanzapine 2.5 Mg Tablet) 2.5 mg PO BID [facility] Last Admin: 06/18/24 20:44 Dose: 2.5 mg Polyethylene Glycol (Polyethylene Glycol 3350 17 Gm Powd.Pack) 17 gm PO DAILY [facility] Last Admin: 06/18/24 09:01 Dose: 17 gm Pravastatin Sodium (Pravastatin Sodium 80 Mg Tablet) 80 mg PO DAILY [facility] Last Admin: 06/18/24 09:02 Dose: 80 mg Trazodone HCl (Trazodone Hcl 50 Mg Tablet) 50 mg PO BEDTIME PRN PRN Reason: Insomnia Last Admin: 06/18/24 20:44 Dose: 50 mg Allergies Allergies Allergy/AdvReac Type Severity Reaction Status Date / Time No Known Allergies Allergy Verified 06/14/24 19:44 Assessment & Plan Assessment & Plan (1) 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 He is currently on metformin 1000mg BID. According to his creatinine clearance, dose shouldn't exceed 1000mg/day. Given A1c, and creatinine clearance will decrease dose to 500mg po BID. (4) HTN (hypertension): Status: Acute Code(s): I10 - Essential (primary) hypertension Assessment and Plan: Amlodipine 10mg po daily Losartan 100mg po daily (5) Extrapyramidal movement disorder: Status: Acute Code(s): G25.9 - Extrapyramidal and movement disorder, unspecified Assessment and Plan: Pt on levodopa/carbidopa at night but NOT for parkison's disease. will clarify with his neurologist, Dr. Ruddy Hammond. Plan Mr. Shaffer is an 84 year-old male with hx of AD who was brought via EMS from [facility] where he was receiving STR to [facility] ED due to combative behaviors. Medical work up grossly unremarkable and not contributory. Pt does NOT present with s/s of delirium. His presentation with impairments in orientation, memory, language deficits are reflection of his underlying dementia, AD type. His condition at this point is in advanced stages. Discussed with his son who is HCP risks, benefits and alternative treatment options. Pt does seem to be sensitive to sedative effects of some psychotropic medications. He slept several hours after dose of olanzapine 10mg. He received lowered dose of seroquel of 25mg which also seem to be sedating. We could try 2.5mg of olanzapine to target more impulsive, irritable mood. PLAN 1. Admit to S1, CV by HCP. HCP is invoked. 1 to 1 due to risk for fall. 2. try low dose olanzapine 2.5mg po BID- monitor over sedation. 3. aftercare planning. 06/17: Continue current management and treatment plan. 06/18: continue current management and treatment plan. 06/19 continue tx. Reason for continued inpatient stay Substantial Risk for: inability to function Time Spent With Patient Time: Total time managing care of this patient today ____ minutes.
[2024-06-19 11:10] VITALS: BP 161/95; PULSE 89
[2024-06-19] MEDS: Losartan Potassium 50 MG TABLET 100 MG PO (11:12)
[2024-06-19] MEDS: Pravastatin Sodium 80 MG TABLET PO (11:12)
[2024-06-19] MEDS: Memantine HCl 10 MG TABLET PO ×2 (11:13→19:48)
[2024-06-19] MEDS: Aspirin 81 MG TAB.CHEW PO (11:13)
[2024-06-19] MEDS: OLANZapine 2.5 MG TABLET PO ×2 (11:13→19:48)
[2024-06-19] MEDS: amLODIPine Besylate 5 MG TABLET PO (11:13)
[2024-06-19] MEDS: metFORMIN HCl 500 MG TABLET PO ×2 (11:13→16:34)
[2024-06-19] MEDS: polyethylene glycoL 3350 17 GM POWD.PACK PO (11:14)
[2024-06-19] MEDS: Azelastine HCl Nasal 137 MCG/Spray 30 ML 2 SPRAY NOSTRIL-B (11:15)
[2024-06-19 19:46] VITALS: BP 106/63; PULSE 85; RESP 16; TEMP 36.9; O2SAT 99
[2024-06-19] MEDS: bisacodyL 5 MG TABLET.DR PO (19:47)
[2024-06-19] MEDS: Carbidopa/Levodopa 25/100 TABLET 1 TAB PO (19:47)
[2024-06-19] MEDS: Donepezil HCl 5 MG TABLET PO (19:48)
[2024-06-19] MEDS: traZODone HCL 50 MG TABLET PO (23:06)
[2024-06-19] MEDS: Acetaminophen 325 MG TABLET 650 MG PO (23:06)
[2024-06-20 06:24] LABS: Glucose, Whole Blood 75 mg/dL (60-115)
[2024-06-20] MEDS: OLANZapine 2.5 MG TABLET PO (08:14)
[2024-06-20] MEDS: Memantine HCl 10 MG TABLET PO ×2 (08:14→20:19)
[2024-06-20] MEDS: Pravastatin Sodium 80 MG TABLET PO (08:14)
[2024-06-20] MEDS: metFORMIN HCl 500 MG TABLET PO ×2 (08:15→16:17)
[2024-06-20] MEDS: OLANZapine 5 MG TABLET PO ×3 (09:25→20:19)
--- NOTE | 2024-06-20 11:24 | P.PNPSI_ITS ---
Subjective Subjective Date of Service: 06/20/24 Reason For Visit: Unspec Dementia Severity w/Behavioral Dist Etc Subjective Notes: Conditional Voluntary (signed by HCP) Healthcare Proxy: Yes Interim History: Pt slept through the night. He was combative in the morning, attempting to hit staff with walker. He was able to be redirected. He is taking medications as prescribed. BP on lower side, which suspect with addition of olanzapine contributing. one to one for risk for fall. Medication Compliance: Yes Side effects from medications: No Attending Groups: No Mental Status Exam Mental Status Exam Narrative: Appearance: wearing casual clothing, fair hygiene, somewhat irritable Behavior: somewhat irritable Psychomotor: no agitation or retardation noted Speech: mumbles at times, regular rate/rhythm, spontaneous TP:mild expressive aphasia TC: wanting to get up and go Mood: good Affect: congruent, slightly irritable SI: none HI: none VH/AH: no overt signs Delusions: confabulation Insight/judgment: impaired x 2. Memory/cog: alert, not oriented to place, month year or situation. severe impairments in memory/cognition. Diagnostics Vital Signs (24Hr): Vital Signs - 24 hr 06/19/24 19:46 Temperature 98.4 F Pulse Rate 85 Respiratory Rate 16 Blood Pressure 106/63 Pulse Oximetry 99 Oxygen Delivery Method Room Air BMI result Body Mass Index 23.3 Labs 06/16/24 10:53 06/16/24 09:07 Labs: Laboratory Results - last 48 hr 06/19/24 06/20/24 06:38 06:19 POC Glucose 74 75 Medications Medications Current Medications Acetaminophen (Acetaminophen 325 Mg Tablet) 650 mg PO Q6H PRN PRN Reason: Headache/Pain, Scale 1-10 Last Admin: 06/19/24 23:06 Dose: 650 mg Al Hydroxide/Mg Hydroxide (Magnesium Hydrox/Alum Hydrox 30 Ml Oral.Susp) 30 ml PO Q6H PRN PRN Reason: Heartburn/Nausea Aspirin (Aspirin 81 Mg Tab.Chew) 81 mg PO DAILY [facility] Last Admin: 06/20/24 08:19 Dose: Not Given Azelastine HCl (Azelastine Hcl Nasal 137 Mcg/[place] 30 Ml) 2 spray NOSTRIL-B BID [facility] Last Admin: 06/20/24 08:20 Dose: Not Given Bisacodyl (Bisacodyl 5 Mg Tablet.Dr) 5 mg PO BEDTIME [facility] Last Admin: 06/19/24 19:47 Dose: 5 mg Carbidopa/Levodopa (Carbidopa/Levodopa 25/100 Tablet) 1 tab PO BEDTIME [facility] Last Admin: 06/19/24 19:47 Dose: 1 tab Donepezil HCl (Donepezil Hcl 5 Mg Tablet) 5 mg PO BEDTIME [facility] Last Admin: 06/19/24 19:48 Dose: 5 mg Losartan Potassium (Losartan Potassium 50 Mg Tablet) 100 mg PO DAILY [facility]; Protocol Last Admin: 06/20/24 08:20 Dose: Not Given Magnesium Hydroxide (Milk Of Magnesia 30 Ml Oral.Susp) 30 ml PO DAILY PRN PRN Reason: Constipation Melatonin (Melatonin 3 Mg Tablet) 3 mg PO BEDTIME PRN PRN Reason: Insomnia Last Admin: 06/17/24 20:15 Dose: 3 mg Memantine (Memantine Hcl 10 Mg Tablet) 10 mg PO BID [facility] Last Admin: 06/20/24 08:14 Dose: 10 mg Metformin HCl (Metformin Hcl 500 Mg Tablet) 500 mg PO BIDWM [facility] Last Admin: 06/20/24 08:15 Dose: 500 mg Nicotine Polacrilex (Nicotine Polacrilex 2 Mg Gum) 4 mg BUCCAL Q2H PRN PRN Reason: Nicotine Cravings Olanzapine (Olanzapine 5 Mg Tablet) 5 mg PO BID [facility] Last Admin: 06/20/24 09:25 Dose: 5 mg Polyethylene Glycol (Polyethylene Glycol 3350 17 Gm Powd.Pack) 17 gm PO DAILY [facility] Last Admin: 06/20/24 08:20 Dose: Not Given Pravastatin Sodium (Pravastatin Sodium 80 Mg Tablet) 80 mg PO DAILY [facility] Last Admin: 06/20/24 08:14 Dose: 80 mg Trazodone HCl (Trazodone Hcl 50 Mg Tablet) 50 mg PO BEDTIME PRN PRN Reason: Insomnia Last Admin: 06/19/24 23:06 Dose: 50 mg Allergies Allergies Allergy/AdvReac Type Severity Reaction Status Date / Time No Known Allergies Allergy Verified 06/14/24 19:44 Assessment & Plan Assessment & Plan (1) 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 He is currently on metformin 1000mg BID. According to his creatinine clearance, dose shouldn't exceed 1000mg/day. Given A1c, and creatinine clearance will decrease dose to 500mg po BID. (4) HTN (hypertension): Status: Acute Code(s): I10 - Essential (primary) hypertension Assessment and Plan: Amlodipine 10mg po daily Losartan 100mg po daily (5) Extrapyramidal movement disorder: Status: Acute Code(s): G25.9 - Extrapyramidal and movement disorder, unspecified Assessment and Plan: Pt on levodopa/carbidopa at night but NOT for parkison's disease. will clarify with his neurologist, Dr. Ruddy Hammond. Plan Mr. Shaffer is an 84 year-old male with hx of AD who was brought via EMS from [facility] where he was receiving STR to [facility] ED due to combative behaviors. Medical work up grossly unremarkable and not contributory. Pt does NOT present with s/s of delirium. His presentation with impairments in orientation, memory, language deficits are reflection of his underlying dementia, AD type. His condition at this point is in advanced stages. Discussed with his son who is HCP risks, benefits and alternative treatment options. Pt does seem to be sensitive to sedative effects of some psychotropic medications. He slept several hours after dose of olanzapine 10mg. He received lowered dose of seroquel of 25mg which also seem to be sedating. We could try 2.5mg of olanzapine to target more impulsive, irritable mood. PLAN 1. Admit to S1, CV by HCP. HCP is invoked. 1 to 1 due to risk for fall. 2. try low dose olanzapine 2.5mg po BID- monitor over sedation. 3. aftercare planning. 06/17: Continue current management and treatment plan. 06/18: continue current management and treatment plan. 06/19 continue tx. 06/20 increase olanzapine to 5mg po BID. hold amlodipine for low BP. Reason for continued inpatient stay Substantial Risk for: inability to function Time Spent With Patient Time: Total time managing care of this patient today ____ minutes.
[2024-06-20 20:00] VITALS: BP 131/63; PULSE 91; RESP 16; TEMP 37.4; O2SAT 98
[2024-06-20] MEDS: traZODone HCL 50 MG TABLET PO (20:19)
[2024-06-20] MEDS: Donepezil HCl 5 MG TABLET PO (20:19)
[2024-06-20] MEDS: bisacodyL 5 MG TABLET.DR PO (20:19)
[2024-06-20] MEDS: Carbidopa/Levodopa 25/100 TABLET 1 TAB PO (20:19)
[2024-06-21 07:56] LABS: Glucose, Whole Blood 85 mg/dL (60-115)
[2024-06-21 08:00] VITALS: BP 126/58; PULSE 78; RESP 18; TEMP 36.4; O2SAT 95
[2024-06-21 08:37] VITALS: BP 126/58
[2024-06-21] MEDS: Memantine HCl 10 MG TABLET PO (08:37)
[2024-06-21] MEDS: Aspirin 81 MG TAB.CHEW PO (08:37)
[2024-06-21] MEDS: Losartan Potassium 50 MG TABLET 100 MG PO (08:37)
[2024-06-21] MEDS: Pravastatin Sodium 80 MG TABLET PO (08:38)
[2024-06-21] MEDS: polyethylene glycoL 3350 17 GM POWD.PACK PO (08:38)
[2024-06-21] MEDS: OLANZapine 5 MG TABLET PO (08:38)
[2024-06-21] MEDS: metFORMIN HCl 500 MG TABLET PO (08:38)
[2024-06-21] MEDS: Azelastine HCl Nasal 137 MCG/Spray 30 ML 2 SPRAY NOSTRIL-B (08:42)
--- NOTE | 2024-06-21 10:47 | PM.PSYDC ---
DS: Providers Provider Date of Service: 06/21/24 Date of admission: 06/14/24 19:31 Date of discharge: 06/21/24 Primary care physician: Unknown Physician Consults: 06/14/24 20:36 Consult to Hospitalist Routine Comment: [place] [facility] [place] Reason For Exam: Transfer pt 06/16/24 21:08 Consult to Wound Care Routine Reason for consultation: wounds Rt lateral foot; left big toe 06/17/24 12:31 Consult to Wound Care Routine Reason for consultation: diabetic foot Discharging clinician: Kaylin Chandler DS: Diagnosis Discharge Diagnosis (1) 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, with behavioral disturbance: Status: Acute (2) HLD (hyperlipidemia): Status: Acute (3) Non-insulin dependent type 2 diabetes mellitus: Status: Acute (4) HTN (hypertension): Status: Acute (5) Extrapyramidal movement disorder: Status: Acute DS: Medications Discharge Medications Home Medications: Home Medications ?Medication ?Instructions ?Recorded ?Confirmed aspirin 81 mg tablet 81 mg PO DAILY 06/14/24 06/14/24 azelastine 205.5 mcg (0.15 %) 2 spray intranasal BID 06/14/24 06/14/24 nasal spray bisacodyl 5 mg tablet,delayed 5 mg PO BEDTIME 06/14/24 06/14/24 release carbidopa ER 25 mg-levodopa 100 mg 1 tab PO BEDTIME 06/14/24 06/14/24 tablet,extended release donepezil 5 mg tablet 5 mg PO BEDTIME 06/14/24 06/14/24 losartan 100 mg tablet 100 mg PO DAILY 06/14/24 06/14/24 magnesium hydroxide 400 mg/5 mL 2,400 mg PO DAILY PRN Constipation 06/14/24 06/14/24 oral suspension memantine 10 mg tablet 10 mg PO BID 06/14/24 06/14/24 polyethylene glycol 3350 17 gram 17 g PO DAILY 06/14/24 06/14/24 oral powder packet pravastatin 80 mg tablet 80 mg PO DAILY 06/14/24 06/14/24 trazodone 50 mg tablet 50 mg PO BEDTIME 06/14/24 06/14/24 Previous Rx's ?Medication ?Instructions ?Recorded aspirin 81 mg chewable tablet 81 mg PO DAILY #0 tabs 06/21/24 azelastine 137 mcg (0.1 %) nasal 2 spray intranasal BID #0 mL 06/21/24 spray bisacodyl 5 mg tablet,delayed 5 mg PO BEDTIME #0 tabs 06/21/24 release carbidopa 25 mg-levodopa 100 mg 1 tab PO BEDTIME #0 tabs 06/21/24 tablet donepezil 5 mg tablet 5 mg PO BEDTIME #0 tabs 06/21/24 losartan 50 mg tablet 100 mg PO DAILY #0 tabs 06/21/24 melatonin 3 mg tablet 6 mg (2 x 3 mg) PO BEDTIME 06/21/24 Insomnia #60 tabs metformin 500 mg tablet 500 mg PO BIDWM #60 tabs 06/21/24 olanzapine 5 mg tablet 5 mg PO BID #60 tabs 06/21/24 pravastatin 80 mg tablet 80 mg PO DAILY #0 tabs 06/21/24 Mental Status Exam Mental Status Exam Narrative: Appearance: wearing casual clothing, fair hygiene, somewhat irritable Behavior: somewhat irritable Psychomotor: no agitation or retardation noted Speech: mumbles at times, regular rate/rhythm, spontaneous TP:mild expressive aphasia TC: wanting to get up and go Mood: good Affect: congruent, slightly irritable SI: none HI: none VH/AH: no overt signs Delusions: confabulation Insight/judgment: impaired x 2. Memory/cog: alert, not oriented to place, month year or situation. severe impairments in memory/cognition. Data Data Completed and Pending Completed studies during hospitalization [Text1]: 06/15/24 06/15/24 06/15/24 05:34 06:21 08:58 WBC RBC Hgb Hct MCV MCH MCHC RDW Plt Count MPV Immature Gran % (Auto) Neut % (Auto) Lymph % (Auto) [place] % (Auto) Eos % (Auto) Baso % (Auto) Lymph # (Auto) [place] # (Auto) Eos # (Auto) Baso # (Auto) Abs Immat Gran (auto) Absolute Neuts (auto) Absolute Nucleated RBC Nucleated RBC % (auto) Sodium Potassium Chloride Carbon Dioxide Anion Gap BUN Creatinine Estim Creat Clear Calc Estimated GFR POC Glucose 69 123 H Random Glucose Estimat Average Glucose 97 Hemoglobin A1c % 5.0 Lactic Acid Calcium Magnesium Total Bilirubin AST ALT Alkaline Phosphatase Total Protein Albumin Triglycerides Cholesterol LDL Cholesterol, Calc HDL Cholesterol Vitamin B12 976 H Folate 14.6 TSH Free T4 06/16/24 06/16/24 06/16/24 08:07 09:07 10:53 WBC 5.9 RBC 3.56 L Hgb 10.6 L Hct 33.4 L MCV 93.8 MCH 29.8 MCHC 31.7 RDW 14.6 Plt Count 255 MPV 9.8 Immature Gran % (Auto) 0.2 Neut % (Auto) 57.2 Lymph % (Auto) 24.1 [place] % (Auto) 15.1 H Eos % (Auto) 3.1 Baso % (Auto) 0.3 Lymph # (Auto) 1.4 [place] # (Auto) 0.9 Eos # (Auto) 0.2 Baso # (Auto) 0.0 Abs Immat Gran (auto) 0.01 Absolute Neuts (auto) 3.4 Absolute Nucleated RBC 0.000 Nucleated RBC % (auto) 0.0 Sodium 143 Potassium 4.1 Chloride 110 H Carbon Dioxide 26 Anion Gap 11 L BUN 16 Creatinine 1.19 Estim Creat Clear Calc 40.9 Estimated GFR 58 POC Glucose Random Glucose 75 Estimat Average Glucose Hemoglobin A1c % Lactic Acid 1.0 Calcium 9.1 Magnesium 1.7 Total Bilirubin 0.4 AST 17 ALT 9 Alkaline Phosphatase 81 Total Protein 6.3 L Albumin 3.1 L Triglycerides 64 Cholesterol 128 LDL Cholesterol, Calc 69 HDL Cholesterol 47 Vitamin B12 Folate TSH 1.53 1.42 Free T4 1.09 06/19/24 06/20/24 06/21/24 06:38 06:19 06:32 WBC RBC Hgb Hct MCV MCH MCHC RDW Plt Count MPV Immature Gran % (Auto) Neut % (Auto) Lymph % (Auto) [place] % (Auto) Eos % (Auto) Baso % (Auto) Lymph # (Auto) [place] # (Auto) Eos # (Auto) Baso # (Auto) Abs Immat Gran (auto) Absolute Neuts (auto) Absolute Nucleated RBC Nucleated RBC % (auto) Sodium Potassium Chloride Carbon Dioxide Anion Gap BUN Creatinine Estim Creat Clear Calc Estimated GFR POC Glucose 74 75 85 Random Glucose Estimat Average Glucose Hemoglobin A1c % Lactic Acid Calcium Magnesium Total Bilirubin AST ALT Alkaline Phosphatase Total Protein Albumin Triglycerides Cholesterol LDL Cholesterol, Calc HDL Cholesterol Vitamin B12 Folate TSH Free T4 DS: Summary Hospital Course Hospital Course: Subjective Notes: Conditional Voluntary (signed by HCP) Narrative: Mr. Shaffer is an 84 year-old male with hx of AD who was brought via EMS from [facility] to [facility] due to increase agitation, attempting to hit staff and other residents and stating I'm going to kill you. In the ED, pt found to be oriented only to self. He was not able to tell why he was in the hospital and did not remember threatening someone. Pertinent labs completed in the ED included cbc with normocytic anemia, Hgb 10.2, Hct 30.5; CMP without electrolyte abnormalities, BUN 25, Cr 1.5, creatinine clearance 46. LFTs wnl. UA with trace of ketones, no glucose, trace of leukocytes but no bacteria. Utox was negative. On the unit, pt had difficulties sleeping through the night and presented with intermittent agitation due to confusion. He presented with somewhat of an irritable edge, not oriented to place, month, year nor situation. Noted expressive aphasia. He attempts to impulsively get up and walk out of his room without awareness of unsteady gait and risk for fall. Collateral information was gathered from his son, also named Abel, who reports pt lives with him but after he had a UTI and went to [facility] he was sent to STR at [facility] where he had difficulty adjusting as his dementia is very advanced and finally he was transferred to memory unit with plan to continue STR. Mr. Shaffer sees a neurologist, Dr. Ruddy Hamomnd who prescribes, aricept, namenda and sinemet (only bedtime dose). Pt's son reports that plan is for patient to return home as son is 19/10 caring for him. Past Psychiatric History: Inpt: none OP: none Neurologist: Ruddy Hammond Past medication trials: namenda, aricept, trazodone Medical Evaluation Reviewed: Yes HOSPITAL COURSE On the unit, pt was admitted on a CV signed by HCP. Pt presented with periods of irritability, threatening to hurt others. He was able to be redirected. We discussed risks, benefits and alternative treatment options with the son, also named Abel, to start olanzapine. He was initially started on olanzapine 2.5mg po BID, then medication was increased to 5mg po BID. He was sleeping through the night. He was eating well. His gait is unsteady and he is impulsive for this reason he was on a one to one. Medically, he did not have any acute exacerbations. He was noted to have creatinine clearance of 40, taking metformin 1000mg po BID, recommended dose if up to 1000mg/day. His A1C was 5 % For these reason metformin was decreased to 500mg po BID. with the addition of olanzapine, his BP noted to be on lower side. He was on losartan 100mg po daily and amlodipine 5mg po daily. Amlodipine 5mg po daily was discontinued. He presented as calmer, still with irritable edge but able to be redirected. No need for chemical restraints. He was continued on namenda 10mg po BID and aricept 5mg po qhs. His son expressed willingness to care for him 19/10 at their home. Status at Discharge Cognitive/behavioral status at discharge: Pt not oriented to place, month, year nor situation. He presents with aphasia. Severe cognitive impairments. Unsteady gait, impulsive. Less reactive and combative. No overt psychosis or delusional content, although he does confabulate. Functional status at discharge: uses cane/walker Overall status at discharge: patient is back to baseline Time Spent with Patient Time attestation: Total time managing care of this patient today __40__ minutes. Time spent: Greater than 30 minutes Discharge Plan Discharge Anticipated Discharge Date/Time: 06/21/24 10:44 Patient Disposition: Home, Self-Care Discharge Diagnosis: Major Neurocognitive Disorder AD Referrals: PCP: Dr. Rubén French ([facility]) [Other] - 06/26/24 1:45 pm Discharge Medications: New losartan 50 mg Tablet 100 mg PO DAILY Qty: 0 0RF Protocol: Hold for SBP< HOLD for SBP < : 90 donepezil 5 mg Tablet 5 mg PO BEDTIME Qty: 0 0RF pravastatin 80 mg Tablet 80 mg PO DAILY Qty: 0 0RF aspirin 81 mg Tablet,Chewable 81 mg PO DAILY Qty: 0 0RF olanzapine 5 mg Tablet 5 mg PO BID Qty: 60 0RF bisacodyl 5 mg Tablet,Delayed Release (Dr/Ec) 5 mg PO BEDTIME Qty: 0 0RF azelastine 137 mcg (0.1 %) [place],Non-Aerosol 2 spray intranasal BID Qty: 0 0RF carbidopa-levodopa 25-100 mg Tablet 1 tab PO BEDTIME Qty: 0 0RF metformin 500 mg Tablet 500 mg PO BIDWM Qty: 60 0RF melatonin 3 mg Tablet 6 mg PO BEDTIME Qty: 60 0RF Continued donepezil 5 mg tablet 5 mg PO BEDTIME carbidopa-levodopa 25-100 mg tablet extended release 1 tab PO BEDTIME trazodone 50 mg tablet 50 mg PO BEDTIME pravastatin 80 mg tablet 80 mg PO DAILY losartan 100 mg tablet 100 mg PO DAILY memantine 10 mg tablet 10 mg PO BID aspirin 81 mg Tablet 81 mg PO DAILY azelastine 205.5 mcg (0.15 %) [place],Non-Aerosol 2 spray INTRANASAL BID Rx Instructions: administer into each nostril bisacodyl 5 mg Tablet,Delayed Release (Dr/Ec) 5 mg PO BEDTIME magnesium hydroxide 400 mg/5 mL Suspension 2,400 mg PO DAILY PRN (Reason: Constipation) polyethylene glycol 3350 17 gram Powder In Packet 17 g PO DAILY Discontinued amlodipine 5 mg tablet 5 mg PO DAILY metformin 1,000 mg tablet 1,000 mg PO BID melatonin 3 mg tablet 3 mg PO BEDTIME PRN (Reason: Insomnia) Discharge Orders: Discharge Order (Routine); Ordered 06/21/24 Ordered By: Kaylin Chandler Diet: Diabetic diet Activity on Discharge: Use cane or walker Stand Alone Forms: Patient Portal Discharge page, Community Support Print Language: [place] Zealander Care Plan Goals: 1. Maintain mood 2. NO aggression towards self or others Health Concerns: Follow up with PCP for routine care- metformin decreased from 1000mg po BID to 500mg po BID based on creatinine clearance, A1C 5% Amlodipine 5mg daily was stopped due to hotn Plan of Treatment: Son to manage medications Go to nearest ED or call 911 in event of emergency Assessment: Pt with bright affect, mildly irritable at times. Not oriented to place, month year nor situation. No overt psychosis or delusions. Sleeping well.
--- NOTE | 2024-06-21 13:09 | PC.NURSE ---
Discharge instructions given to the patient's son Abel Sutton. Pt left the unit at 13:00. They took patient's belongings as well as medications from HCP pharmacy; 1 bottle of Metformin 500 mg Qty 60 and 1 bottle of Olanzapine 5 mg Qty 60.
== END 2024-06-21 13:00 | disposition home or self-care (01) | DRG 57 ==
PROVIDERS: Clinical Nurse Specialist Psychiatric/Mental Health, Adult; Social Worker; Admitting Provider Psychiatry & Neurology Psychiatry; Visit Provider Psychiatry & Neurology Psychiatry
DX: G30.9 Alzheimer's disease, unspecified (principal); G25.9 Extrapyramidal and movement disorder, unspecified; F02.818 Dementia in other diseases classified elsewhere, unspecified severity, with other behavioral disturbance; E78.5 Hyperlipidemia, unspecified; I10 Essential (primary) hypertension; E11.9 Type 2 diabetes mellitus without complications; Z79.899 Other long term (current) drug therapy
CPT/HCPCS: 36415; 80053; 80061; 82607; 82746; 82947; 83036; 83605; 83735; 84439; 84443; 85025

== ENCOUNTER → 2024-06-14 19:31 | Outpatient (BNV) | payer OTHER, SELFPAY | PROVIDERS: Admitting Provider Psychiatry & Neurology Psychiatry; Visit Provider Social Worker | DX: G30.9 Alzheimer's disease, unspecified (principal); F02.818 Dementia in other diseases classified elsewhere, unspecified severity, with other behavioral disturbance; E78.5 Hyperlipidemia, unspecified; E11.9 Type 2 diabetes mellitus without complications; I10 Essential (primary) hypertension; G25.9 Extrapyramidal and movement disorder, unspecified | CPT/HCPCS: 90792; 99232; 99239 ==

== ENCOUNTER → 2024-06-14 19:31 | Outpatient (BNV) | payer OTHER, SELFPAY | PROVIDERS: Admitting Provider Psychiatry & Neurology Psychiatry; Visit Provider Student in an Organized Health Care Education/Training Program | DX: Z00.8 Encounter for other general examination (principal) | CPT/HCPCS: 99222 ==